=== PATIENT | female | born 1995 | race Caucasian/White ===

== ENCOUNTER 2020-06-14 10:15 | Outpatient (CLI) | payer SELFPAY ==
[~2020-06-14 10:15] MED LIST: MOTRIN600 MG PO; PERCOCET 5/3251 TA1 PO
== END 2020-06-14 11:58 | disposition home or self-care (01) ==
LOC: D.LDO 10:15
PROVIDERS: ATTEND Obstetrics & Gynecology
DX: O36.8190 Decreased fetal movements, unspecified trimester, not applicable or unspecified (principal)

== ENCOUNTER → 2020-08-09 19:36 | Outpatient (CLI) | payer BC | END | disposition home or self-care (01) | LOC: D.LDO 19:36 | PROVIDERS: ATTEND Student in an Organized Health Care Education/Training Program | DX: O36.8130 Decreased fetal movements, third trimester, not applicable or unspecified (principal); Z3A.37 37 weeks gestation of pregnancy ==

== ENCOUNTER 2020-08-24 13:37 | Inpatient (IN) | payer BC ==
[~2020-08-24] VITALS: Ht 167.6 cm; Wt 111.2 kg
[2020-08-29 07:39] VITALS: BP 115/74; Ht 167.6 cm; Wt 111.2 kg
[2020-08-29 07:57] LABS: HEMATOCRIT 31.5 % (36.0-48.0); HEMOGLOBIN 10.5 g/dL (12-16); MCH 26.7 pg (26.0-34.0); MCHC 33.3 g/dL (31.0-37.0); MCV 80.2 fL (80.0-100.0); MEAN PLATELET VOLUME 8.9 fL (7.4-10.4); RBC 3.92 10x6/uL (4.00-5.40); RDW 13.4 % (11.5-14.5); WBC 6.8 10x3/uL (4.8-10.8)
--- NOTE | 2020-08-29 10:40 | NUR ---
PT RETURNED BACK TO ROOM 1278 AT 1015. PT DENIES PAIN. NO FURTHER INSTRUCTIONS FROM ANESTHESIA. POST PITOCIN CONTINUED. PT POSITIONED. RECOVERY PHASE STARTED AT 1015.
--- NOTE | 2020-08-29 12:30 | NUR ---
REPORT RECEIVED FROM Laura CHAVEZ RN. PT IS AWAKE AND ALERT AND RATES PAIN AT 2/10. DENIES NEEDS AT THIS TIME, BONDING WITH INFANT WITH SPOUSE AT BEDSIDE.
--- NOTE | 2020-08-29 13:38 | NUR ---
INFANT TO BREAST, PT RATES PAIN AT 2/10. FUNDUS FIRM AT U/1 WITH LIGHT BLEEDING. WILL CALL WHEN FEEDING HAS FINISHED SO THAT UNDERPAD COULD BE CHANGED. DENIES NEEDS AT THIS TIME. CALL LIGHT IN REACH.
--- NOTE | 2020-08-29 14:40 | NUR ---
UPON ENTERING ROOM PT SITTING UP IN ROOM, RATES PAIN AT 4/10 BUT STATES SHE JUST USED HER COUNTER FORMER. FUNDUS FIRM AT U/1 WITH LIGHT BLEEDING, UNDERPADS CHANGED AND SHE IS ABLE TO REPOSITION SELF FOR COMFORT. LARGE ICE WATER REQUESTED. GIVEN SIMITHICONE FOR C/O GAS/PRESSURE. SIG OTHER AT BEDSIDE, SIDE RAILS UP X 2 WITH CALL LIGHT IN REACH.
--- NOTE | 2020-08-29 14:46 | NUR ---
THIS RN RESUMING CARE OF PT. BEDSIDE REPORT REC'D FROM Oren PARKS RN. C/O ABD AND INCISIONAL DISCOMFORT 06/08. DENIES NEED FOR INTERVENTION AT THIS TIME, STATES THAT MOLD BLOWER IS WORKING WELL FOR CONTROLLING PAIN. POC DISCUSSED, PT STATES THAT SHE WOULD LIKE TO GET OOB TO AMBULATE AND SHOWER. WILL DISCUSS WITH DR. HEWITT, PT VERBALIZES UNDERSTANDING OF NEED FOR ORDER.
--- NOTE | 2020-08-29 14:49 | NUR ---
REPORT TO Oren GOETZ RN.
--- NOTE | 2020-08-29 15:56 | NUR ---
SPOKE WITH DR. HEWITT REGARDING PT REQUEST TO NORMALIZE, ORDERS REC'D.
--- NOTE | 2020-08-29 16:14 | NUR ---
RESTING ON R SIDE WITH EYES CLOSED. RESP REGULAR AND UNLABORED, NO S/S OF DISTRESS NOTED. BED IN LOW POSITION WITH SRUP X2. CALL LIGHT AND PHONE WITHIN REACH.
--- NOTE | 2020-08-29 17:13 | NUR ---
AND BONDING WITH . C/O ABD AND INCISIONAL DISCOMFORT PER EMAR. TORADOL GIVEN, DENIES NEED FOR ADDITIONAL INTERVENTION, STATES THAT CHEERLEADING COACH MAKES HER SLEEPY AND SHE WANTS TO STAUFFER WITH INFANT AT THIS TIME. STATES THAT SHE WILL PRESS BUTTON WHEN DONE WITH CARE. ICE WATER AND ICE PACK PROVIDED. SIG OTHER AT BEDSIDE, SUPPORTIVE AND ATTENTIVE TO PT AND NEEDS. SCD'S ON BLE. BED IN LOW POSITION WITH SRUP X2. CALL LIGHT AND PHONE WITHIN REACH.
--- NOTE | 2020-08-29 17:48 | NUR ---
CONTINUES TO C/O ABD AND INCISIONAL DISCOMFORT 11/08. BONDING WITH INFANT. STATES THAT SHE IS FORGETTING THAT SHE HAS [employer] BUTTON AND STATES THAT SHE WILL HIT THE BUTTON A COUPLE TIMES. ICE WATER PROVIDED AND PT ENCOURAGED TO INCREASE PO FLUID INTAKE D/T URINE APPEARING CONCENTRATED, VERBALIZES UNDERSTANDING.
--- NOTE | 2020-08-29 18:50 | NUR ---
PERICARE DONE. PADS, TOWELS, AND CHUX CHANGED. FF, MIDLINE AND U2 WITH SMALL AMT RUBRA LOCHIA, NO CLOTS NOTED. ICE PACK PROVIDED. I&O DONE, ENCOURAGED TO INCREASE PO FLUID INTAKE. EDUCATED ON PAIN CONTROL AND USE OF EQUAL OPPORTUNITY SPECIALIST, VERBALIZES UNDERSTANDING. SCD'S ON BLE. INCENTIVE SPIROMETER DONE X10 WITH GOOD EFFORT. BED IN LOW POSITION, SRUP X2. CALL LIGHT AND PHONE WITHIN REACH. SIG OTHER AT BEDSIDE, SUPPORTIVE AND ATTENTIVE TO PT AND NEEDS.
[2020-08-29 19:50] VITALS: BP 107/53
--- NOTE | 2020-08-29 22:32 | NUR ---
PIV SALINE LOCKED IN RIGHT HAND. ICE WATER PROVIDED. PT DENIES OTHER NEEDS AT THIS TIME.
--- NOTE | 2020-08-29 23:41 | NUR ---
IBUPROFEN AND PERCOCET ADMINISTERED PER EMAR. PT DENIES OTHER NEEDS AT THIS TIME.
--- NOTE | 2020-08-30 01:10 | NUR ---
PT UP TO BR FIRST TIME, [address] IN [facility]. PERICARE DONE, PANTIES PROVIDED.
--- NOTE | 2020-08-30 01:50 | NUR ---
PT MOVED TO 1257
--- NOTE | 2020-08-30 01:55 | NUR ---
PERIPADS, PANTIES, ICE WATER PROVIDED. PT DENIES NEEDS AT THIS TIME.
--- NOTE | 2020-08-30 03:30 | NUR ---
PT , DENIES NEEDS.
--- NOTE | 2020-08-30 05:05 | NUR ---
MEDICATIONS ADMINISTERED PER EMAR. PT DENIES NEEDS AT THIS TIME.
--- NOTE | 2020-08-30 06:00 | NUR ---
PT RESTING AWAKE WITH IN CRIB AT BEDSIDE. PT DENIES NEEDS AT THIS TIME.
[2020-08-30 07:00] LABS: BASOPHILS 0.5 % (0-2); EOSINOPHILS 3.6 % (0-7); HEMATOCRIT 28.9 % (36.0-48.0); HEMOGLOBIN 9.5 g/dL (12-16); LYMPHOCYTES 17.2 % (15-50); MCH 26.6 pg (26.0-34.0); MCHC 32.8 g/dL (31.0-37.0); MCV 81.1 fL (80.0-100.0); MEAN PLATELET VOLUME 8.3 fL (7.4-10.4); MONOCYTES 7.4 % (2-11); NEUTROPHILS 71.3 % (40-80); PLATELET COUNT 242 10x3/uL (130-400); RBC 3.57 10x6/uL (4.00-5.40); RDW 13.3 % (11.5-14.5)
--- NOTE | 2020-08-30 07:22 | NUR ---
CARING FOR INFANT. DENIES NEEDS AT THIS TIME. BED IN LOW POSITION WITH SRUP X2. CALL LIGHT AND PHONE WITHIN REACH.
[2020-08-30 08:03] VITALS: BP 98/58
--- NOTE | 2020-08-30 08:03 | NUR ---
SHIFT ASSESSMENT COMPLETED PER FLOWSHEET. VSS. FF, MIDLINE AND U2 WITH SMALL AMT RUBRA LOCHIA, NO CLOTS NOTED. LOWER TRANSVERSE ABD INCISION WELL APPROXIMATED WITH GLUE INTACT. PT REPORTS THAT SHE IS VOIDING AND PASSING FLATUS WITHOUT DIFFICULTY. BOWEL SOUNDS PRESENT BUT HYPOACTIVE X4 QUADRANTS. ABD BINDER PROVIDED AND PT INSTRUCTED TO CALL RN WHEN GETTING OBB FOR BINDER PLACEMENT, INSTRUCTED ON USE, VERBALIZES UNDERSTANDING. ENCOURAGED AMB, VERBALIZES UNDERSTANDING. C/O FEELING BLE "EXTREMELY SWOLLEN, MORE SO THAN WITH PREVIOUS BIRTHS." 1+ BLE PITTING EDEMA NOTED, EDUCATED AGAIN ON IMPORTANCE OF AMBULATION OUTSIDE OF ROOM, VERBALIZES UNDERSTANDING. WILL NOTIFY MD OF PT COMPLAINTS AND ASSESSMENT FINDINGS. SCD'S ON BLE. BED IN LOW POSITION WITH SRUP X2, CALL LIGHT AND PHONE WITHIN REACH. SIG OTHER AT BEDSIDE, SUPPORTIVE AND ATTENTIVE TO PT AND NEEDS.
--- NOTE | 2020-08-30 08:16 | NUR ---
DR. 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 ORDERS REC'D TO CONTINUE WITH CURRENT REGIMEN OF PAIN CONTROL, SIMETHICONE, AMBULATION, ABD BINDER AND TO PLACE JEFF HOSE. PT UPDATED ON POC AND VERBALIZES UNDERSTANDING AND APPREICATION.
--- NOTE | 2020-08-30 09:05 | NUR ---
C/O ABD AND INCISIONAL PAIN, 10/08. MEDICATED PER EMAR. JEFF HOSE PROVIDED PER V/O, HOWEVER WILL HOLD PLACEMENT UNTIL POST DOPPLER STUDIES. PT EDUCATED ON POC, VERBALIZES UNDERSTANDING AND DENIES QUESTIONS. BED IN LOW POSITION WITH SRUP X2. CALL LIGHT AND PHONE WITHIN REACH. SPOUSE AT BEDSIDE, SUPPORTIVE AND ATTENTIVE.
--- NOTE | 2020-08-30 10:01 | NUR ---
PAIN 4-5/10. REPORTS THAT PAIN MED "HELPED SOME BUT IT STILL HURTS." EDUCATED ON EXPECTATIONS OF PAIN FOLLOWING , VERBALIZES UNDERSTANDING. ICE PACK PROVIDED PER PT REQUEST. ICE WATER PROVIDED. DENIES ADDITIONAL NEEDS.
--- NOTE | 2020-08-30 10:54 | NUR ---
C/O ABD AND INCISIONAL DISCOMFORT, MOTRIN GIVEN PER ORDER. 08/08, REPORTS THAT THIS IS AN ACCEPTABLE PAIN LEVEL FOR HER. CARING FOR INFANT. ICE WATER PROVIDED. DENIES ADDITIONAL NEEDS. BED IN LOW POSITION WITH SRUP X2. CALL LIGHT AND PHONE WITHIN REACH.
--- NOTE | 2020-08-30 11:41 | NUR ---
PAIN NOW /10. DENIES NEEDS. BONDING WITH INFANT.
--- NOTE | 2020-08-30 13:54 | NUR ---
C/O ABD AND INCISIONAL DISCOMFORT. MEDICATED PER EMAR. VSS. FF, MIDLINE AND U2 WITH SCANT RUBRA LOCHIA. REPORTS THAT SHE IS VOIDING AND PASSING FLATUS, GAS-X ALSO PROVIDED PER REQUEST. ICE WATER GIVEN. VOICES CONCERN REGARDING DOPPLER U/S, WILL CONTACT US AND UPDATE PT.
--- NOTE | 2020-08-30 14:10 | NUR ---
SPOKE WITH KASSANDRA [employer] REGARDING DOPPLER. PER KASSANDRA SHE WILL BE TO UNIT BY 1430. PT UPDATED.
--- NOTE | 2020-08-30 14:58 | NUR ---
PAIN 4/10, DENIES NEEDS. BONDING WITH .
--- NOTE | 2020-08-30 15:25 | NUR ---
FEMALE PT OF DR GAMEZ PRESENT AT 0715 ON LABOR AND DELIVERY UNIT. PT STATED THAT SHE PRESENTS FOR AN EXTERNAL VERSION TO BE COMPLETED BY DR. GAMEZ THAT WILL RESULT IN EITHER A SECTION OR VAGINAL DELIVERY OF MALE . PT NAME AND VERIFIED AND PT PLACED IN ROOM 1278. URINE SAMPLE REQUESTED FROM PT. PT THE PLACED ON MONITOR, ASSESSMENT COMPLETED AND VITAL SIGNS OBTAINED. ORDERS PROVIDED BY DR GAMEZ AND WERE COMPLETED. 1110 DR GAMEZ, DR HEWITT, MEDICAL STUDENT RAY KAMARA, MOTOR COACH DRIVER AT PT BEDSIDE. TIMEOUT COMPLETED AT 1111, LANCE EMPTIED AT THIS TIME WITH IN AND OUT CATHETER. 300 CC CLEAR, YELLOW URINE EXPELLED. 1111 EXTERNAL VERSION STARTED BY DR GAMEZ AND DR HEWITT 1128 EXTERNAL VERSION NOTED SUCCESSFUL. [address] GAMEZ. CLEAR FLUID NOTED, [id number] ELECTRODE PLACED AT THIS TIME. [address] 1209 PT TRANSFERRED TO ROOM 1275 FROM 1278 AT THIS AND PLACED ON LABOR BED. PERICARE COMPLETED.
--- NOTE | 2020-08-30 17:33 | NUR ---
AMBULATORY IN ROOM, STEADY GAIT NOTED. NEG DOPPLER STUDIES REVIEWED WITH PT, VERBALIZES UNDERSTANDING. JEFF HOSE PLACED. R THIGH CIRCUMFERANCE 73 CM, L THIGH CIRCUMFERANCE 72.5 CM. ABD BINDER PLACED. BOWEL SOUNDS ACTIVE X 4 QUADRANTS, REPORTS THAT SHE IS PASSING FLATUS AND PAIN IS MORE RELIEVED NOW, JUST INCREASED WITH ACTIVITY. MEDICATED PER EMAR. INSTRUCTED ON LOVENOX ADMINISTRATION, VERBALIZES UNDERSTANDING. PT ACTIVATED SAFETY MECHANISM.
--- NOTE | 2020-08-30 20:00 | NUR ---
INTRODUCED SELF TO PT. SHE IS RESTING QUIETLY IN BED HOLDING BABY. SHE IS BONDING WELL. FUNDUS IS FIRM. PT HAS AM 18 GUAGE SL IN THE LEFT FOREARM. PT HAS AN ABDOMENAL BINDER IN PLACE. SHE HAS TEDS TO BILATERAL LE. SHE DOES HAVE 1 PLUS PITTING EDEMA IN LOWER EXTEMITIES. ASSESSMENT COMPLETED SIDE RAILS UP, CALL LIGHT IN REACH, AND PT KNOWS TO CALL IF SHE HAS ANY NEEDS OR PROBLEMS.
--- NOTE | 2020-08-30 20:57 | NUR ---
PT REQUESTED PAIN MEDS. PERCOCET 10 GIVEN PO.
--- NOTE | 2020-08-30 21:30 | NUR ---
PT IS RESTING QUIETLY. PAIN IS BETTER NOW.
[2020-08-30 22:00] VITALS: BP 110/56
--- NOTE | 2020-08-31 | NUR ---
PT IS RESTING QUIETLY WITH HER EYES CLOSED. NO C/O OR NEEDS NOW
--- NOTE | 2020-08-31 01:07 | NUR ---
PT REQUESTING PAIN MEDS AND GAS X. BOTH WERE GIVEN. PT IS HAVING PAIN AT HER INCISION SITE.
--- NOTE | 2020-08-31 04:40 | NUR ---
PT WAKED UP FOR VS. SHE ASKED FOR PAIN MEDS AND GAS X. THIS WAS GIVEN. SHE IS AWAKE AND ALERT AT THIS TIME.
[2020-08-31 05:00] VITALS: BP 118/68
--- NOTE | 2020-08-31 05:42 | NUR ---
PT STATES PAIN IS BETTER. NO C/O AT THIS TIME
--- NOTE | 2020-08-31 06:24 | NUR ---
RESTING QUIETLY WITHOUT C/O
[2020-08-31 07:45] VITALS: BP 127/72
--- NOTE | 2020-08-31 07:45 | NUR ---
RECEIVED PT SITTING UP IN BED. AWAKE. VSS. HRRR WITHOUT AUDIBLE MURMUR. BBS CLEAR. BS X 4. ABDOMEN SOFT/NON-DISTENDED. FUNDUS FIRM AT U/1. RUBRA LOCHIA SCANT AMT. PT DENIES HEAVY BLEEDING OR PASSING CLOTS. STATES PASSING GAS. NO BM YET. ABDOMINAL INCISION WITH DERMABOND NOTED. NO REDNESS, SWELLING OR DRAINAGE NOTED. 1+/1+ PITTING EDEMA NOTED TO BLE. JEFF HOSE NOT ON AT THIS TIME. PT STATES "I TOOK THEM OFF LAST NIGHT". PT ENCOURAGED TO KEEP JEFF HOSE ON. PT VERBALIZES UNDERSTANDING. PT DENIES C/O OR NEEDS.
[2020-08-31 08:13] LABS: RAPID PLASMA REAGIN Non Reactive (Non Reactive)
--- NOTE | 2020-08-31 08:45 | NUR ---
PT SITTING UP IN BED. DENIES C/O OR NEEDS.
--- NOTE | 2020-08-31 09:00 | NUR ---
DR HEWITT ON UNIT. STATES WILL COME SEE PT AFTER MORNING CLINIC.
--- NOTE | 2020-08-31 10:30 | NUR ---
C/O ABDOMINAL INCISIONAL PAIN OF "8" ON 0-10 PAIN SCALE. MOTRIN 600 MG AND PERCOCET 10/325 GIVEN PO ORDERED.
--- NOTE | 2020-08-31 11:33 | NUR ---
PT AMBULATORY IN ROOM. STATES PAIN BETTER. STATES PAIN OF "5" ON 0-10 PAIN SCALE. DENIES NEEDS AT THIS TIME.
--- NOTE | 2020-08-31 12:50 | NUR ---
DR HEWITT VISITS WITH PT. ORDER RECEIVED TO OK HOME.
[2020-08-31] MEDS ORDERED: PERCOCET 5-3251 TAB PO (13:17)
[2020-08-31] MEDS ORDERED: LOVENOX40 MG/0.4 SC (13:17)
--- NOTE | 2020-08-31 15:00 | NUR ---
DISCHARGE INSTRUCTIONS GIVEN TO PT. PT VERBALIZES UNDERSTANDING OF ALL INSTRUCTIONS. COPIES GIVEN TO PT. PT GIVEN RX FOR PERCOCET. SL DC'D WITH CATHELON INTACT. PRESSURE BANDAGE TO SITE. PT PREPARES FOR DISCHARGE.
--- NOTE | 2020-08-31 15:30 | NUR ---
PT READY FOR DISCHARGE. DISCHARGED IN STABLE CONDITION WITH VIA WHEELCHAIR PER CENTRAL OFFICE MECHANIC TO PRIVATE VEHICLE.
--- NOTE | 2020-08-31 16:05 | OP ---
PATIENT NAME: MARCOS MATUTE MEDICAL RECORD: [id number] LOCATION:[id number] ADMISSION DATE:08/29/20 SURGEON: JAVIER HEWITT DO DATE OF OPERATION: 08/29/2020 PREOPERATIVE DIAGNOSIS: Scheduled repeat at 39 weeks 2 days. POSTOPERATIVE DIAGNOSES: Scheduled repeat at 39 weeks 2 days and adhesion of bladder to anterior uterus and uterine window. PRIMARY SURGEON: Javier Hewitt DO ANESTHESIA: Spinal. PROCEDURE: Repeat low transverse section via Pfannenstiel incision, lysis of adhesions. FINDINGS: Female infant, weight 3034 grams, delivered at 9:12 a.m. Apgars 9 and 9. Bladder adhesed to anterior uterus. Normal appearing uterus, bilateral fallopian tubes, bilateral ovaries. SPECIMENS: Placenta and cord. ESTIMATED BLOOD LOSS: 800 cc. IV FLUIDS: 1400 cc. URINE OUTPUT: 350 cc of clear urine. COMPLICATIONS: None. CONDITION: Stable. DESCRIPTION OF PROCEDURE: The risks, benefits, alternatives and indications of the procedure were discussed with the patient. She voiced understanding of the procedure and signed the consent. She was taken to the OR where spinal anesthesia was administered and found to be adequate. She was placed in the dorsal supine position with a leftward tilt. She was prepped and draped in the normal sterile fashion. A Pfannenstiel skin incision was made with a scalpel and carried down to the underlying layer of the fascia with the Bovie. The fascia was incised in the midline and extended laterally. The inferior aspect of the fascial incision was grasped with Tamar clamps and the rectus muscle was dissected off sharply. Attention was then turned to the superior aspect of the fascial incision and the rectus muscle was dissected off in a similar fashion. The rectus muscle was grasped with 2 Allises, down to the level of the peritoneum with the scalpel. The peritoneum was identified and noted to be free of adherent bowel and entered bluntly. At that time, the bladder was noted to be adhered to the anterior abdominal wall up to the mid uterus. The bladder was dissected with a combination of blunt and sharp dissection and a bladder flap was created. At that time, a uterine window was noted. The bladder blade was inserted. The uterus was incised in a transverse fashion in the lower uterine segment with a scalpel. The incision was extended with cephalad and caudad traction. The was brought to the incision and the delivered without difficulty. Mouth and nose were suctioned. Cord was clamped and cut. The was handed off to the waiting pediatric team. The placenta was OPERATIVE REPORT [id number] MARCOS MATUTE manually removed. The uterus was exteriorized and a moist lap was used to assure complete removal of placental membranes. The hysterotomy was closed with 0 Vicryl in a running locked fashion. The posterior cul-de-sac was irrigated with warm sterile water and suctioned. The hysterotomy was reinspected. There were some bleeding areas that were ligated with 2-0 Monocryl suture with good hemostasis. The uterus, tubes and ovaries were returned back to the abdominal cavity. A moist laparotomy sponge was used to assure complete removal of blood clots and fluid from the abdominal cavity. The hysterotomy was reinspected and noted to be hemostatic; however, due to the previous bleeding from the incision Merry was placed over the incision. The rectus muscle was closed with 2-0 Monocryl in a running fashion with good hemostasis. The fascial incision was closed with 0 Vicryl in a running fashion with good hemostasis. The subcutaneous fat was closed with 2-0 plain gut suture and the skin was closed with 3-0 Monocryl in a subcuticular fashion. All needle, lap, sponge and instrument counts were correct times 2. The patient tolerated the procedure well and she was taken to the recovery room in stable condition. She was advised that due to the uterine window and adhesions of the bladder to the uterus, it would not be advised to get again in the future and will need some form of contraception. The patient states understanding. The patient was taken to the recovery room in stable condition. TRANSINT:[id number] Voice Confirmation ID: [id number] DOCUMENT ID: [id number] JAVIER HEWITT DO at 1605 CC: [id number] DICTATION DATE: 08/29/20 1018 CAMPAIGN ADVISOR: 08/29/20 1205 DIS IN 08/31/20 [id number] [place] [address]
== END 2020-08-31 15:30 | disposition home or self-care (01) | DRG 788 ==
LOC: D.LD 08-29 06:25
PROVIDERS: ADMIT Student in an Organized Health Care Education/Training Program; ATTEND Student in an Organized Health Care Education/Training Program
PROC: 10D00Z1 Extraction of Products of Conception, Low, Open Approach (ICD-10-PCS; principal; 2020-08-29)
DX: O34.219 Maternal care for unspecified type scar from previous cesarean delivery (principal); Z3A.39 39 weeks gestation of pregnancy; N32.89 Other specified disorders of bladder; R22.43 Localized swelling, mass and lump, lower limb, bilateral; Z37.0 Single live birth